=== PATIENT | male | born 1940 | race American Indian/Alaskan Native ===

== ENCOUNTER 2019-07-23 12:23 | Outpatient (CLI) | payer OTHER ==
[~2019-07-23 12:23] MED LIST: ALEVE220 M1; ALTACE5 MG; ASPIR 8181 MG; COUMADIN2 MG; DICLOFENAC POTA50 MG; SYNTHROID50 MCG; TIMOLOL MALEATE5 ML; TOPROL XL25 M1; ZOCOR20 MG
== END 2019-07-23 12:24 | disposition home or self-care (01) ==
LOC: RAD 12:23
DX: M16.11 Unilateral primary osteoarthritis, right hip (principal)

== ENCOUNTER 2024-08-08 08:40 | Outpatient (CLI) | payer OTHER | END 2024-08-08 08:42 | disposition home or self-care (01) | LOC: SONOGRAMA 08:40 | PROVIDERS: ATTEND Internal Medicine Gastroenterology | DX: R10.9 Unspecified abdominal pain (principal) ==